=== PATIENT | female | born 1960 | race Caucasian/White ===

== ENCOUNTER 2025-07-08 14:14 | Outpatient (AMB) | payer MEDICARE, MEDICAID, SELFPAY ==
--- NOTE | 2025-07-08 14:20 | HO.NEPHOV ---
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 She has COPD and has history of respiratory failure. She follows with Dr. Greogry. She is not on any diuretics. She consumes excess free water by mouth. She has history of anxiety and is on Celexa. She also had breast cancer and had been on letrozole which she has discontinued. Her blood pressure medications have been adjusted lately. She denies any carotid stenosis, peripheral arterial disease, CVA, CHF or CAD. She consumes excess sodium in the diet. She has no family history of any renal disease, renal replacement or renal transplantation. She denies nausea, vomiting, diarrhea, chest pain, orthostatic symptoms, epistaxis, hemoptysis, hematuria, hearing deficits or proteinuria. She has no history of renal calculi or paraproteinemia. [facility] Medical History (Updated 07/08/25 @ 15:17 by Antonio Sadler MD) Breast cancer Shortness of breath Inadequate dietary energy intake Hypotension, unspecified Hyponatremia Hypertensive chronic kidney disease with stage 1 through stage 4 chronic kidney disease, or unspecified chronic kidney disease Chronic obstructive pulmonary disease with (acute) exacerbation Chronic kidney disease, stage 3b Anxiety disorder, unspecified Acute hypoxic respiratory failure Surgical History (Updated 07/08/25 @ 14:26 by Tuyet Morel MA) Hx of abdominal surgery Hx of appendectomy H/O breast surgery Social History (Updated 07/08/25 @ 14:24 by Tuyet Morel MA) Alcohol intake: current Patient Tobacco Use Status: Former Tobacco user Review of Systems Const All systems reviewed & are unremarkable except as noted in HPI and below Physical Exam Vital Signs: Last Vital Signs Pulse 108 H 07/08/25 14:26 BP 90/60 07/08/25 14:26 Pulse Ox 94 07/08/25 14:26 Oxygen Delivery Method Room Air 07/08/25 14:26 BMI result Body Mass Index 26.5 Const General: comfortable and no acute distress Orientation/consciousness: patient oriented x3 HEENT Head: Yes normocephalic Mouth: Normal oral and palatal mucosa present Eyes EOM: EOMs intact bilaterally Neck Neck: Yes supple Resp Auscultation: clear to auscultation bilaterally Cardio Jugular venous distension: no JVD Rate: regular rate GI Palpation (GI): Soft to palpation Auscultation: normal bowel sounds General: Yes no CVA tenderness Back/Spine/Pelvis Back: no CVA tenderness Skin General skin exam: no rashes or lesions noted Neuro General: patient oriented x3 and moves all extremities Extrem General: Yes no pedal edema Assessment & Plan Assessment & Plan (1) CKD stage 3a, GFR 45-59 ml/min: Code(s): N18.31 - Chronic kidney disease, stage 3a Category: Medical (2) Hyponatremia: Code(s): E87.1 - Hypo-osmolality and hyponatremia Category: Medical (3) Hypertension: Code(s): I10 - Essential (primary) hypertension Category: Medical Qualifiers: Hypertension type: primary hypertension Qualified Code(s): I10 - Essential (primary) hypertension Plan Yamilex most likely has excess ADH due to pulmonary issues. It is compounded by her intake of Celexa for anxiety disorder. She also takes excess free water by mouth. I asked her to goal on fluid restriction. She has longstanding hypertension and her blood pressure medications had been optimized recently. She also has CKD for some time. We need to rule out renal vascular disease. She is on ALLEN-inhibitor. I asked her to minimize sodium intake and avoid nonsteroidal anti-inflammatories. I have ordered blood work, urine studies as well as imaging. She was encouraged to bring all her home medications for review. I did not make any other medication changes other than discontinuation of her nonsteroidal anti-inflammatories. All these have been explained in detail. Answered all questions and follow-up appointment given. Orders: Orders Sodium Urine Random 3 Weeks E87.1 - Hypo-osmolality and hyponatremia, I95.9 - Hypotension, unspecified, N18.31 - Chronic kidney disease, stage 3a Thyroid Stimulating Hormone 3 Weeks E87.1 - Hypo-osmolality and hyponatremia, I95.9 - Hypotension, unspecified, N18.31 - Chronic kidney disease, stage 3a Uric Acid 3 Weeks E87.1 - Hypo-osmolality and hyponatremia, I95.9 - Hypotension, unspecified, N18.31 - Chronic kidney disease, stage 3a Osmolality, Serum 3 Weeks E87.1 - Hypo-osmolality and hyponatremia, I95.9 - Hypotension, unspecified, N18.31 - Chronic kidney disease, stage 3a Osmolality Urine 3 Weeks E87.1 - Hypo-osmolality and hyponatremia, I95.9 - Hypotension, unspecified, N18.31 - Chronic kidney disease, stage 3a Immunofixation Pnl, Serum 3 Weeks E87.1 - Hypo-osmolality and hyponatremia, I95.9 - Hypotension, unspecified, N18.31 - Chronic kidney disease, stage 3a US renal doppler 3 Weeks I95.9 - Hypotension, unspecified, N18.31 - Chronic kidney disease, stage 3a Cortisol Random 3 Weeks E87.1 - Hypo-osmolality and hyponatremia, I95.9 - Hypotension, unspecified, N18.31 - Chronic kidney disease, stage 3a Parathyroid Hormone Intact 3 Weeks E87.1 - Hypo-osmolality and hyponatremia, I95.9 - Hypotension, unspecified, N18.31 - Chronic kidney disease, stage 3a Vitamin D 25-OH Total 3 Weeks E87.1 - Hypo-osmolality and hyponatremia, I95.9 - Hypotension, unspecified, N18.31 - Chronic kidney disease, stage 3a Protein Creatinine Ratio, Ur 3 Weeks E87.1 - Hypo-osmolality and hyponatremia, I95.9 - Hypotension, unspecified, N18.31 - Chronic kidney disease, stage 3a Electrolytes 3 Weeks E87.1 - Hypo-osmolality and hyponatremia, I95.9 - Hypotension, unspecified, N18.31 - Chronic kidney disease, stage 3a Calcium 3 Weeks E87.1 - Hypo-osmolality and hyponatremia, I95.9 - Hypotension, unspecified, N18.31 - Chronic kidney disease, stage 3a Blood Urea Nitrogen 3 Weeks E87.1 - Hypo-osmolality and hyponatremia, I95.9 - Hypotension, unspecified, N18.31 - Chronic kidney disease, stage 3a Creatinine 3 Weeks E87.1 - Hypo-osmolality and hyponatremia, I95.9 - Hypotension, unspecified, N18.31 - Chronic kidney disease, stage 3a US renal BI 3 Weeks I95.9 - Hypotension, unspecified, N18.31 - Chronic kidney disease, stage 3a Coding Level of Care Code New Pt Level 4 (42658) Diagnoses CKD stage 3a, GFR 45-59 ml/min N18.31 Hyponatremia E87.1 Primary hypertension I10 Hypertension type: primary hypertension
[2025-07-08 14:26] VITALS: BP 90/60; PULSE 108; O2SAT 94; BMI 26.5
--- OUTSIDE RECORDS SUMMARY | 2025-07-08 15:29 | XMS_ITS ---
Author Name [facility] Organization Unknown Care Team Organization Name Specialty Phone Email Start Date End Da te [facility] ACO 06/25/2025 [facility] MIRI TYLER Primary Care 07/13/2023 06/24/2024 [facility] MILY HESS Primary Care 09/13/2022
--- OUTSIDE RECORDS SUMMARY | 2025-07-08 15:29 | XMS_ITS | Clinical Summary ---
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 Active letrozole (FEMARA) 2.5 mg tablet Take 1 tablet (2.5 mg total) by mouth 1 (one) time each day 30 tablet 3 09/30/20 24 Active betamethasone dipropionate (DIPROSONE) 0.05 % cream Apply twice a day on the rash for 10 days 45 g 2 10/08/20 24 Active amLODIPine (NORVASC) 5 mg tablet Take 1 tablet (5 mg total) by mouth 1 (one) time each day. 90 each 3 10/08/20 24 Active fluticasone-ume clidinium-vilan terol (Trelegy Ellipta) 100-62.5-25 mcg inhaler Inhale 1 puff (100 mcg total) by mouth 1 (one) time each day. Rinse mouth with water after use to reduce aftertaste and incidence of candidiasis. Do not swallow. 1 each 12 10/17/20 24 025 Active albuterol HFA (PROAIR HFA ; PROVENTIL HFA ; VENTOLIN HFA) 90 mcg/actuation inhaler Inhale 2 puffs by mouth every 6 (six) hours if needed for wheezing. 6.7 g 3 12/10/19 25 Active meclizine (ANTIVERT) 25 mg tablet Take 1 tablet (25 mg total) by mouth 3 (three) times a day if needed for dizziness. 30 tablet 3 12/10/19 25 Active melatonin 3 mg tablet Take 1 tablet (3 mg total) by mouth at bedtime. 90 tablet 01/07/20 25 Active pravastatin (PRAVACHOL) 20 mg tablet TAKE ONE TABLET BY MOUTH EVERY DAY 90 tablet 1 03/13/20 25 Active citalopram (CeleXA) 10 mg tablet TAKE ONE TABLET BY MOUTH EVERY DAY IN THE MORNING 90 tablet 1 03/13/20 25 Active fluticasone propionate (FLONASE) 50 mcg/actuation nasal spray Administer 2 sprays into each nostril 1 (one) time each day. 16 g 3 03/18/20 25 Active predniSONE (DELTASONE) 20 mg tablet 1 p.o. twice daily for 5 days and then 1 p.o. daily for 7 days 17 each 04/01/20 25 Active tiZANidine (ZANAFLEX) 4 mg tablet Take 1 tablet (4 mg total) by mouth 1 (one) time each day if needed for muscle spasms. 30 tablet 1 04/01/20 25 Active omeprazole (PriLOSEC) [address] capsule TAKE ONE CAPSULE BY MOUTH EVERY DAY DO NOT CRUSH OR CHEW 90 capsule 1 04/03/20 25 Active lisinopriL (PRINIVIL,ZESTR IL) 10 mg tablet TAKE ONE TABLET BY MOUTH EVERY DAY 90 tablet 1 04/03/20 25 Active budesonide-glyc opyr-formoterol (Breztri Aerosphere) 160-9-4.8 mcg/actuation HFA aerosol inhaler inhaler Inhale 2 puffs by mouth 2 (two) times a day. Active Vitamins B Complex tablet TAKE ONE TABLET BY MOUTH EVERY DAY 30 tablet 1 05/27/20 25 Active metoprolol succinate (TOPROL-XL) 50 mg 24 hr tablet TAKE ONE TABLET BY MOUTH EVERY DAY 90 tablet 1 12/19/19 25 025 Discontinued labetaloL (NORMODYNE) 100 mg tablet TAKE ONE TABLET BY MOUTH TWICE A DAY 60 tablet 5 01/02/20 25 025 Discontinued(T herapy completed) Hospital, Clinic, or Other Facility Administered Medication Ordered Dose Route Frequency Start Date End Date Status pmqyjpjjomj-cgpmuxpdvkyn-lqst nterol (TRELEGY ELLIPTA) 100-62.5-25 mcg inhaler 100 mcgIndications:Chronic obstructive pulmonary disease with acute exacerbation ([facility] V24, [facility] V28) 100 mcg inhl Once 10/08/2024 Active Active Problems Problem Noted Date Diagnosed Date Chronic obstructive pulmonar y disease with acute exacerbation ([facility] V24, [facility] V28) 10/18/2024 Assessment & Plan (12/10/2024 2:50 PM EST): Stable on current inhaler trilogy Orders: CBC and differential; Future Comprehensive metabolic panel; Future Lipid panel with reflex to direct LDL; Future Thyroid stimulating hormone; Future Acute respiratory failure wi th hypoxia ([facility] V24, [facility] V28) 10/18/2024 Hypertensive chronic kidney disease with stage 1 through stage 4 chronic kidney disease, or unspecified chronic kidney disease 10/18/2024 Chronic kidney disease, stage 3b ([facility] V24, [facility] V28) 10/18/2024 Hypotension, unspecified 10/18/2024 Anxiety disorder, unspecified 10/18/2024 Shortness of breath 09/19/2024 COPD exacerbation ([facility] V24, [facility] V28) Hyponatremia 09/19/2024 Inadequate dietary energy intake 09/19/2024 Acute hypoxic respiratory fa ilure ([facility] V24, [facility] V28) 09/16/2024 Encounters Date Type Department Care Team Description 06/18/2025 Telephone Lung Screening Program - [place] [address] [facility] [address] [place] [address] Jovita Ramos MA 06/13/2025 1:13 PM EDT - 06/13/2025 11:59 PM EDT Hospital Encounter [facility] CT Scan [address] [place] [address] Personal history of nicotine dependence Discharge Disposition: Home or Self Care 06/12/2025 1:30 PM EDT - 06/12/2025 11:59 PM EDT Hospital Encounter [facility] Pulmonary [address] [place] [phone] Chronic obstructive pulmonary disease with acute exacerbation ([facility] V24, [facility] V28) Discharge Disposition: Home or Self Care 06/12/2025 Telephone Pulmonolgy - [place] [address] [phone] Abel Gregory MD 06/12/2025 Telephone Lung Screening Program - [place] 299 [facility] [address] [place] [phone] Mitzy Álvarez MA 06/10/2025 1:00 PM EDT Office Visit Internal Medicine [facility] [address] [phone] Loki Sims MD Primary hypertension (Primary Dx); Hypercholesterolemia; Hyponatremia; Hair loss 2025 Telephone Pulmonolgy - [place] [address] [phone] Abel Gregory MD 05/23/2025 8:45 AM EDT Office Visit [address] [phone] Abel Gregory MD Chronic obstructive pulmonary disease with acute exacerbation ([facility] V24, [facility] V28) (Primary Dx); Chronic obstructive pulmonary disease, unspecified COPD type ([facility] V24, [facility] V28) 04/10/2025 Telephone Internal Medicine - [place] [address] [phone] Loki Sims MD from Last 3 Months Immunizations Name Administration Dates Next Due Pfizer SARS-CoV-2 COVID-19, mRNA, LNP-S, preservative free 02/26/2021 Surgical History Surgery Date Site/Laterality Comments BREAST LUMPECTOMY PROCEDURE:BREAST LUMPECTOMY APPENDECTOMY PROCEDURE:APPENDECTOMY APPENDECTOMY PROCEDURE: NE APPENDECTOMY; COMMENT: age 10 SALPINGOOPHORECTOMY PROCEDURE: NE LAPAROSCOPY W/RMVL ADNEXAL STRUCTURES; COMMENT: ovaina cysts BREAST BIOPSY 2015 Left PROCEDURE: BX BREAST; PERC NEEDLE CORE W/IMAG GUID BREAST SURGERY 2014 Left PROCEDURE: NE UNLISTED PROCEDURE BREAST Medical History Medical History Date Comments Breast cancer ([facility] V24, [facility] V28) DX:Breast cancer (HCC) Hypertension DX:Hypertension Hyperlipidemia DX:Hyperlipidemi a Anxiety DX:Anxiety Generalized headaches DX:General ized headaches Unspecified essential hypertension DX:Unspecified essential hypertension Historical Medical DX 04/23/2008 DX:HTN Smoker 04/27/2010 DX:Smoker Pure hypercholesterolemia 09/19/2011 DX:Pur e hypercholesterolemia Macrocytosis 12/11/2017 DX:Macrocytosis Chronic fatigue 12/11/2017 DX:Chronic fatig ue Chronic left-sided low back pain with left-sided sciatica 08/21/2018 DX:Chronic left-sided low ba ck pain with left-sided sciatica Unintentional weight loss 08/21/2018 DX:Uni ntentional weight loss Breast cancer ([facility] V24, [facility] V28) 11/17/2014 DX:Breast cancer ([facility]); COMM ENT: left Family History Medical History Relation Name Comments Stroke Aunt mothers side Aneurysm Brother 1 brain Other: Other Brother 2 from brain anuerysm at age 53 Heart attack Father from 1st M I age 60 Heart attack Father's Brother Heart attack Uncle Breast cancer Neg Hx Relation Name Status Comments Aunt Brother 1 Brother 2 Father Father's Brother Uncle Social History Tobacco Use Types Packs/Day Years Used Date Smoking Tobacco: Former Cigarettes Q uit: 05/28/2024 Smokeless Tobacco: Never Alcohol Use Standard Drinks/Week Comments Yes 0 (1 standard drink = 0.6 oz pur e alcohol) Interpersonal Safety Answer Date Record ed Physical Abuse 09/17/2024 Verbal Abuse 09/17/2024 Comments Unknown Sex and Gender Information Value Date Recorded Sex Assigned at Female 06/10/2025 10:04 PM EDT Legal Sex Female 12:32 PM EST Gender Identity Not on file Sexual Orientation Not on file Obstetrics History Last Filed Vital Signs Vital Sign Reading Time Taken Comments Blood Pressure 100/60 06/10/2025 1:13 PM EDT Pulse 67 06/10/2025 1:13 PM EDT Temperature 36 C (96.8 F) 06/10/2025 1:13 PM EDT Respiratory Rate 20 05/23/2025 9:02 AM EDT Oxygen Saturation 96% 06/10/2025 1:13 PM EDT Inhaled Oxygen Concentration - - Weight 68.6 kg (151 lb 3.2 oz) 06/10/2025 1:13 P M EDT Height 165.1 cm (5' 5 ) 06/10/2025 1:13 PM EDT Body Mass Index 25.16 06/10/2025 1:13 PM EDT Plan of Treatment Upcoming Encounters Date Type Department Care Team (Late st Contact Info) Description 09/16/2025 11:00 AM EST Office Visit Pulmonolgy - [place] [address] [phone] Abel Gregory MD [address] [place] [phone] 09/23/2025 2:[address] [facility] CT Scan [address] [place] [phone] 10/23/2025 1:15 PM EST Office Visit Internal Medicine - [place] [address] [phone] Loki Sims MD [address] [place] [phone] 12/31/2025 11:45 AM EST Office Visit [facility] Hematology Oncology [address] [place] [phone] Estella Samuels MD [address] [place] [address] Health Maintenance Due Date Last Done Comments Pneumococcal Vaccine: 50+ Years (1 of 2 - PCV) 1977 Zoster Vaccines (1 of 2) 1977 DTaP,Tdap,and Td Vaccines (2 - Td or Tdap) 03/28/2017 03/28/2007 RSV Immunization Adult Patients (1 - Risk 60-74 years 1-dose series) 2018 COVID-19 Vaccine (3 - Pfizer risk series) 04/16/2021 03/19/2021, 02/26/2021 Colorectal Cancer Screening: Stool Based Tests (FOBT/FIT) 10/12/2022 Hepatitis C Screening 10/12/2022 Social Influencers of Health Screening 10/12/2022 Influenza Vaccine (#1) 2025 Falls Risk Assessment 12/10/2025 12/10/2024, 024 Medicare Annual Wellness Visit 12/10/2025 12/10/2024 Breast Cancer Screening 03/18/2026 03/18/20 24, 03/18/2024, 03/07/2023, Additional history exists Hypertension/CHF/CAD Annual BMP Blood Test 05/23/2026 05/23/2025, 09/18/2024, 09/17/2024, Additional history exists Cholesterol Screening (Lipid Panel) 05/23/2030 05/23/2025 Osteoporosis Screening (Bone Density Screening) 05/28/2034 05/28/2024, 01/26/2022, 05/06/2021, Additional history exists Depression Screening Completed 12/10/2024 HIB Vaccines Aged Out No longer eligi ble based on patient's age to complete this topic HPV Vaccines Aged Out No longer eligi ble based on patient's age to complete this topic Hepatitis A Vaccines Aged Out No long er eligible based on patient's age to complete this topic Hepatitis B Vaccines Aged Out No long er eligible based on patient's age to complete this topic IPV Vaccines Aged Out No longer eligi ble based on patient's age to complete this topic MMR Vaccines Aged Out No longer eligi ble based on patient's age to complete this topic Meningococcal ACWY Vaccine Aged Out N o longer eligible based on patient's age to complete this topic Meningococcal B Vaccine Aged Out No l onger eligible based on patient's age to complete this topic RSV Immunization Patients Under 20 months Aged Out No longer eligible based on patient's age to complete this topic Varicella Vaccines Aged Out No longer eligible based on patient's age to complete this topic Procedures Procedure Name Priority Date/Time Associated Diagnosis Comments CT LUNG SCREENING Routine 06/13/2025 1:2 3 PM EDT Personal history of nicotine dependence HC STRESS TEST PULMONARY Routine 06/12/2025 2:02 PM EDT Chronic obstructive pulmonary disease with acute exacerbation (CMS/HCC V24, CMS/HCC V28) CBC WITH AUTO DIFFERENTIAL Routine 05/23/2025 9:42 AM EDT Chronic obstructive pulmonary disease with acute exacerbation (CMS/HCC V24, CMS/HCC V28) Primary hypertension Hypercholesterolemia CBC AND DIFFERENTIAL Routine 05/23/2025 9:42 AM EDT Chronic obstructive pulmonary disease with acute exacerbation (CMS/HCC V24, CMS/HCC V28) Primary hypertension Hypercholesterolemia COMPREHENSIVE METABOLIC PANEL Routine 05/23/2025 9:42 AM EDT Chronic obstructive pulmonary disease with acute exacerbation (CMS/HCC V24, CMS/HCC V28) Primary hypertension Hypercholesterolemia LIPID PANEL WITH REFLEX TO DIRECT LDL Routine 05/23/2025 9:42 AM EDT Chronic obstructive pulmonary disease with acute exacerbation (CMS/HCC V24, CMS/HCC V28) Primary hypertension Hypercholesterolemia THYROID STIMULATING HORMONE Routine 05/23/2025 9:42 AM EDT Chronic obstructive pulmonary disease with acute exacerbation (CMS/HCC V24, CMS/HCC V28) Primary hypertension Hypercholesterolemia HERNANDO DEXA AXIAL SKELETON Routine 05/28/2024 7:45 AM EDT Other specified disorders of bone density and structure, left thigh SCREENING MAMMOGRAPHY BI 2-VIEW BREAST INC CAD Routine 03/18/2024 11:41 AM EDT Personal history of malignant neoplasm of breast Encounter for screening mammogram for malignant neoplasm of breast from Last 3 Months or Most Recently Relevant to Health Maintenance Results * CT Lung Screening (06/13/2025 1:23 PM EDT) Anatomical Region Laterality Modality Chest Computed Tomogra phy 06/18/2025 8:18 AM EDT Impressions 06/18/2025 8:38 AM EDT Interval worsening aeration. Severe underlying emphysema. There is a new irregular opacity in the right apex which is difficult to quantify but is approximately 0.8 cm. Recommend repeat low-dose CT in 3 months Multiple additional scattered micronodules or areas of airway thickening have developed. Interval development of compression deformity T12. LUNG RADS: Lung-RADS 4A: SUSPICIOUS S Modifier (Significant or Potentially Significant Findings): None present No suspicious nonpulmonary findings. RECOMMENDATIONS: [address]; PET/CT may be considered if there is a greater than or equal to 8 mm solid nodule or solid component -------- FINAL REPORT -------- Dictated By: Ben Santos Dictated Date: 06/18/2025 08:18 ET Assigned Physician: Ben Santos Reviewed and Electronically Signed By: Ben Santos Signed Date: 06/18/2025 08:38 ET Workstation ID: [id number] Transcribed By: Self Edit Transcribed Date: 06/18/2025 08:18 ET Narrative 06/18/2025 8:38 AM EDT EXAMINATION: CT CHEST WITHOUT CONTRAST LUNG CANCER SCREENING, LOW DOSE CLINICAL INFORMATION: Lung cancer screening. Current smoker. COMPARISON: Portions of previous 08/29/23 TECHNIQUE: Multidetector CT. Examination of the chest. Examination of the chest without IV contrast. Reformatting in the coronal and sagittal planes. Device: Ovelin VCT DLP: 106 mGy-cm CTDI: 3.22 Dose optimization was performed including the use of low-dose iterative reconstruction technique with automatic exposure control based on patient size. Type of contrast: None Volume of IV contrast: None Volume of contrast discarded: 0 mL FINDINGS: LUNG: No suspicious abnormality of the trachea or mainstem bronchi. There are minor secretions in the trachea. LUNG NODULES: There is an apparently new irregular opacity in the right apex which is difficult to quantify and has some reticular margins. 06/13/25-0.8 cm (02/03) There is a new micronodule in the periphery of the anterior left upper lobe (63) measuring approximately 0.3 cm. There are multiple scattered micronodules predominantly in the periphery and lower lung zones. There is some airway thickening. These all measure less than 0.4 cm. OTHER PULMONARY: Severe centrilobular emphysema. There are coarse reticular opacities greatest in the periphery and in the lower lung zones. There is no honeycomb formation. The reticular opacities have increased. MEDIASTINUM: There are some calcified lymph nodes. There is a small to moderate hiatal hernia. CARDIAC: There is a small amount of pericardial fluid without chamber deformity. There are moderate coronary calcifications. VASCULAR: There is no thoracic aortic aneurysm. The main pulmonary artery is normal caliber PLEURA: There is no pleural fluid or pneumothorax AXILLA/CHEST WALL: There are no enlarged axillary lymph nodes. No chest wall mass demonstrated. VISUALIZED UPPER ABDOMEN: No suspicious abnormality on limited assessment of the visualized upper abdomen. MUSCULOSKELETAL: No suspicious focal bony lesion demonstrated. Interval development of mild to moderate superior compression deformity of T12 greatest anteriorly with some vacuum phenomena at T11/T12 disc. Some mild bony projection into the spinal canal. us Ovi Carlos MD IMG CT PROCEDURES Final Result * Pulmonary function testing: Pulmonary Stress Test, 6 min walk (06/12/2025 2:02 PM EDT) Narrative Kendra Walden MD - 06/12/2025 5:18 PM EDT Table formatting from the original result was not included. Images from the original result were not included. [facility] [address] [place] [id number] Pulmonary Functions Report Date of service: 06/12/25 Patient Name: Michelle Strong Date of : 1960 Age: 65 y.o. Gender: female Ordering Provider: Abel Gregory MD Diagnosis listed on Order: Chronic obstructive pulmonary disease with acute exacerbation ([facility] V24, [facility] V28) Reason for Exam: Order Questions Answers Reason for Exam: copd Which PFTs would you like to perform? Pulmonary Stress Test, 6 min walk Six Minute Walk Test Data: Patient Baseline Information: Supplemental O2 at Home No O2 (LPM / Device) at Home Walking Aid Used None Symptoms reported by patient None Pre Test Data: Pre Test Dyspnea (Debora Scale 0-10) 0 Pre Test Fatigue (Debora Scale 0-10) 0 Resting: Vitals HR: 82 RR: 16 SpO2: 94 % BP: 122/64 O2 Device and LPM (if applicable) 1 minute: Vitals HR: 88 RR: 18 SpO2: 94 % O2 Device and LPM (if applicable) 2 minutes: Vitals HR: 104 RR: 20 SpO2: 92 % O2 Device and LPM (if applicable) 3 minutes: Vitals HR: 110 RR: 22 SpO2: 92 % O2 Device and LPM (if applicable) 4 minutes: Vitals HR: 114 RR: 24 SpO2: 90 % O2 Device and LPM (if applicable) 5 minutes: Vitals HR: 112 RR: 26 SpO2: 89 % O2 Device and LPM (if applicable) 6 minutes: Vitals HR: 108 RR: 24 SpO2: 90 % O2 Device and LPM (if applicable) Recovery: Vitals HR: 88 RR: 18 SpO2: 93 % BP: 115/66 O2 Device and LPM (if applicable) Post Test: Pauses needed during testing? Yes If Yes, reason for pauses SOB Total Distance completed (feet) 506 feet (154.299) Symptoms reported by patient Post Test Dyspnea (Debora Scale 0-10) 1 Post Test Fatigue (Debora Scale 0-10) 1 Was Test terminated before 6 minutes? No Reason for Early Termination Abel Gregory MD PFT ORDERABLES Final Result * (ABNORMAL) Lipid panel with reflex to direct LDL (05/23/2025 9:42 AM EDT) Cholesterol 176 0 - 200 mg/dL LAB CHEMISTRY METHOD 05/23/2025 3:46 PM EDT [facility] Triglycerides 98 0 - 150 mg/dL LAB CHEMISTRY METHOD 05/23/2025 3:46 PM EDT [facility] HDL 52 >=40 mg/dL LAB CHEMISTRY METHOD 05/23/2025 3:46 PM EDT [facility] LDL Calculated 104(H) 0 - 100 mg/dL LAB CHEMISTRY METHOD 05/23/2025 3:46 PM EDT [facility] VLDL Cholesterol [place] 19.6 mg/dL LAB [facility]STR[facility]/23[facility]25 [facility] Non HDL Chol. (LDL+VLDL) 124 <145 mg/dL LAB CHEMISTRY METHOD 05/23/2025 3:46 PM EDT [facility] Chol/HDL Ratio 3.4 0.0 - 4.4 LAB CHEMISTRY METHOD 05/23/2025 3:46 PM EDT [facility] Blood Venous blood specimen / Unknown Venipuncture / Unknown 05/23/2025 9:42 AM EDT 05/23/2025 9:42 AM EDT us Loki Sims MD LAB BLOOD ORDERABLES Final Resul t [facility] [address] [place] [address], * (ABNORMAL) CBC auto differential (05/23/2025 9:42 AM EDT) WBC 9.2 4.8 - 10.8 K/mcL LAB HEMETOLOGY METHOD 05/23/2025 10:32 AM EDT [facility] RBC 3.90 3.80 - 4.80 M/mcL LAB HEMETOLOGY METHOD 05/23/2025 10:32 AM EDT [facility] Hemoglobin 12.2 11.5 - 16.0 g/dL LAB HEMETOLOGY METHOD 05/23/2025 10:32 AM EDT [facility] Hematocrit 36.2 35.0 - 47.0 % LAB HEMETOLOGY METHOD 05/23/2025 10:32 AM T [facility] MCV 92.8 79.0 - 98.0 FL LAB HEMETOLOGY METHOD 05/23/2025 10:32 AM EDT [facility] MCH 31.3 27.0 - 32.0 pcg LAB HEMETOLOGY METHOD 05/23/2025 10:32 AM T [facility] MCHC 33.7 32.0 - 37.0 g/dL LAB HEMETOLOGY METHOD 05/23/2025 10:32 AM [facility] RDW 12.1 11.0 - 15.0 % LAB HEMETOLOGY METHOD 05/23[facility]2025 10:[facility] Platelets 394 130 - 400 K/mcL LAB HEMETOLOGY METHOD 05/23/2025 10:32 AM [facility] MPV 8.7 7.0 - 11.0 FL LAB HEMETOLOGY METHOD 05/23/2025 10:32 AM [facility] NRBC 0.0 <1.0 % LAB HEMETOLOGY METHOD 05/23/2025 10:32 AM [facility] NRBC Absolute 0.00 <0.10 K/mcL LAB HEMETOLOGY METHOD 05/23/2025 10:32 AM [facility] Neutrophils Relative 63.3 % LAB HEMETOLOGY METHOD 05/23/2025 10:32 AM [facility] Lymphocytes Relative 10.0 % LAB HEMETOLOGY METHOD 05/23/2025 10:32 AM [facility] Monocytes Relative 16.0 % LAB HEMETOLOGY METHOD 05/23/2025 10:32 AM [facility] Eosinophils Relative 9.4 % LAB HEMETOLOGY METHOD 05/23/2025 10:32 AM [facility] Basophils Relative 0.9 % LAB HEMETOLOGY METHOD 05/23/2025 10:32 AM [facility] Immature Granulocytes Relative 0.4 % LAB HEMETOLOGY METHOD 05/23/2025 10:32 AM [facility] Neutrophils Absolute 5.82 1.50 - 7.00 K/mcL LAB HEMETOLOGY METHOD 05/23/2025 10:32 AM [facility] Lymphocytes Absolute 0.92(L) 1.00 - 5.00 K/mcL LAB HEMETOLOGY METHOD 05/23/2025 10:32 AM [facility] Monocytes Absolute 1.47(H) 0.20 - 1.00 K/mcL LAB HEMETOLOGY METHOD 05/23/2025 10:32 AM EDT [facility] Eosinophils Absolute 0.86(H) 0.00 - 0.50 K/[facility] LAB HEMETOLOGY METHOD 05/23/2025 10:32 AM EDT [facility] Basophils Absolute 0.08 0.00 - 0.20 K/[facility] LAB HEMETOLOGY METHOD 05/23/2025 10:32 AM EDT [facility] Immature Granulocytes Absolute 0.04(H) 0.00 - 0.03 K/[facility] LAB HEMETOLOGY METHOD 05/23/2025 10:32 AM EDT [facility] Blood Venous blood specimen / Unknown Venipuncture / Unknown 05/23/2025 9:42 AM EDT 05/23/2025 9:42 AM EDT us Loki Sims MD LAB BLOOD ORDERABLES Final Resul t Performing Organization Address City/[facility]/ZIP Co de Phone Number [facility] [address] [place] [address], [place] [phone] * Thyroid stimulating hormone (05/23/2025 9:42 AM EDT) [facility] TSH 1.15 0.40 - 4.00 mcIU/mL LAB CHEMISTRY METHOD 05/23/2025 5:45 PM EDT [facility] Blood Venous blood specimen / Unknown Venipuncture / Unknown 05/23/2025 9:42 AM EDT 05/23/2025 9:42 AM EDT us Loki Sims MD LAB BLOOD ORDERABLES Final Resul t Performing Organization Address City/[facility]/ZIP Co de Phone Number [facility] [address] [place] [address], [place] [phone] * (ABNORMAL) Comprehensive metabolic panel (05/23/2025 9:42 AM EDT) Pathologist [facility] Sodium 131(L) 133 - 145 mmol/L LAB CHEMISTRY METHOD 05/23/2025 3:46 PM [facility] Potassium 3.9 3.5 - 5.5 mmol/L LAB CHEMISTRY METHOD 05/23/2025 3:46 PM [facility] Chloride 99 96 - 110 mmol/L LAB CHEMISTRY METHOD 05/23/2025 3:46 PM [facility] CO2 23 21 - 32 mmol/L LAB CHEMISTRY METHOD 05/23/2025 3:46 PM [facility] Anion Gap 9 3 - 11 LAB CHEMISTRY METHOD 05/23/2025 3:46 PM [facility] Glucose 110(H) 70 - 100 mg/dL LAB CHEMISTRY METHOD 05/23/2025 3:46 PM [facility] BUN 16 5 - 25 mg/dL LAB CHEMISTRY METHOD 05/23/2025 3:46 PM [facility] Creatinine 1.19(H) 0.50 - 1.10 mg/dL LAB CHEMISTRY METHOD 05/23/2025 3:46 PM [facility] eGFR 51(L) >=60 mL/min/1. 73m2 LAB CHEMISTRY METHOD 05/23/2025 3:46 PM [facility] Comment:Calculation based on the Chronic Kidney Disease Epidemiology Collaboration (CKD-EPI) equation refit without adjustment for race. BUN/Creatinine Ratio 13.4 LAB CHEMISTRY METHOD 05/23/2025 3:46 PM [facility] Calcium 9.1 8.5 - 10.5 mg/dL LAB CHEMISTRY METHOD 05/23/2025 3:46 PM [facility] AST (SGOT) 13 10 - 42 unit/L LAB CHEMISTRY METHOD 05/23/2025 3:46 PM [facility] ALT (SGPT) 14 10 - 60 unit/L LAB CHEMISTRY METHOD 05/23/2025 3:46 PM [facility] Alkaline Phosphatase 104 42 - 121 unit/L LAB CHEMISTRY METHOD 05/23/2025 3:46 PM EDT [facility] Total Protein 6.6 6.0 - 8.0 g/dL LAB CHEMISTRY METHOD 05/23/2025 3:46 PM EDT [facility] Albumin 3.2 3.2 - 5.0 g/dL LAB CHEMISTRY METHOD 05/23/2025 3:46 PM EDT [facility] Total Bilirubin 0.5 0.0 - 1.4 mg/dL LAB CHEMISTRY METHOD 05/23/2025 3:46 PM EDT [facility] Blood Venous blood specimen / Unknown Venipuncture / Unknown 05/23/2025 9:42 AM EDT 05/23/2025 9:42 AM EDT us Loki Sims MD LAB BLOOD ORDERABLES Final Resul t [facility] [address] [place] [address], * HERNANDO DEXA AXIAL SKELETON (05/28/2024 7:45 AM EDT) Anatomical Region Laterality Modality Mammography 05/27/2024 1:12 PM EDT Narrative 05/28/2024 7:45 AM EDT [facility] Diagnostic Imaging Department [address] [place] [address] Patient: MICHELLE STRONG/Age/Sex: 1960 - 64 - F Unit#: [id number] Location/Status: SPDIMAM/REG CLI Mnemonic/Ordering Site: MAMDEXAAX/SPMAM Ordering Physician: ESTELLA SAMUELS MD Hernando Dexa Axial Skeleton - 05/27/24 - Report Status:Signed HISTORY: The patient is a 64-year-old postmenopausal female with clinical concern for metabolic bone disease. FINDINGS: Dual energy x-ray absorptiometry of the lumbar spine and femurs is performed. The mean bone mineral density at L1-L4 is 1.065 gm/cm2 which is 90% of that of young normals and 105% of that of age matched controls. This yields a T-score of -1.0 and a Z-score of 0.4 and there is therefore no evidence of osteoporosis or osteopenia here. The mean bone mineral density of the femurs bilaterally is 0.821 gm/cm2 which is 81% of that of young normals and 94% of that of age matched controls. This yields a T-score of -1.5 and a Z-score of -0.4 which is diagnostic of osteopenia. IMPRESSION: 1. Osteopenia. There has been increase of 7.0% in bone mineral density in the lumbar spine since the prior examination of 01/26/2022. There has been an increase of 3.9% in bone mineral density in the right femur and a decrease of 0.6% in bone mineral density in the left femur. 2. FRAX analysis yields a 10-year probability of major osteoporotic fracture of 23.4% and a 10-year probability of hip fracture of 7.6%. Code 69317 Dictating Physician: LUIS ANTONIO TRIPLETT MD Electronically Signed by: LUIS ANTONIO TRIPLETT MD Dic Date/Time: 05/28/24 0743 Sign date/Time: 05/28/2445 Procedure Note Luis Antonio Triplett MD - 08/21/2024 [facility] Diagnostic Imaging Department [address] [place] [address] Patient: MICHELLE STRONG /Age/Sex: 1960 - 64 - F Unit#: [id number] Location/Status: SPDIMAM/REG CLI Mnemonic/Ordering Site: MAMDEXAAX/SPMAM Ordering Physician: ESTELLA SAMUELS MD Hernando Dexa Axial Skeleton - 05/27/24 - Report Status:Signed HISTORY: The patient is a 64-year-old postmenopausal female withclinical concern for metabolic bone disease. FINDINGS: Dual energy x-ray absorptiometry of the lumbar spine and femursis performed. The mean bone mineral density at L1-L4 is 1.065 gm/cm2 which is90% of that of young normals and 105% of that of age matched controls. Thisyields a T-score of -1.0 and a Z-score of 0.4 and there is therefore no evidenceof osteoporosis or osteopenia here. The mean bone mineral density of the femurs bilaterally is 0.821 gm/sm5skmck is 81% of that of young normals and 94% of that of age matched controls.This yields a T-score of -1.5 and a Z-score of -0.4 which is diagnostic of osteopenia. IMPRESSION: 1. Osteopenia. There has been increase of 7.0% in bone mineral density inthe lumbar spine since the prior examination of 01/26/2022. There has beenan increase of 3.9% in bone mineral density in the right femur and a decreaseof 0.6% in bone mineral density in the left femur. 2. FRAX analysis yields a 10-year probability of major osteoporoticfracture of 23.4% and a 10-year probability of hip fracture of 7.6%. Code 92722 Dictating Physician: LUIS ANTONIO TRIPLETT MD Electronically Signed by: LUIS ANTONIO TRIPLETT MD Dic Date/Time: 05/28/24 0743 Sign date/Time: 05/28/24 0745 Estella TORRES BI PROCEDURES Final Resu lt * SCREENING MAMMOGRAPHY BI 2-VIEW BREAST INC CAD (03/18/2024 11:41 AM EDT) Anatomical Region Laterality Modality Radiographic Ciarra ging 03/07/2023 10:2 7 AM EDT Narrative 03/18/2024 1:20 PM EDT This is a summary report. The complete report is available in the patient's medical record. If you cannot access the medical record, please contact the sending organization for a detailed fax or copy. Full field digital screening tomosynthesis mammography, reviewed with CAD and compared to previous. The breast tissue is heterogeneously dense, limiting sensitivity. Findings of lumpectomy on the left once again remains stable. No suspicious mass, architectural distortion or suspicious calcifications are identified. IMPRESSION: : Dense breast tissue, limiting the sensitivity of mammography. No mammographic evidence of malignancy. BIRADS 2-Benign; 1. 5 year breast cancer risk assessment N/A Lifetime breast cancer risk assessment N/A Breast cancer risk category Low (<15%) Procedure Note Michelet Beltrán MD - 06/24/2024 This is a summary report. The complete report is available in thepatient's medical record. If you cannot access the medical record, pleasecontact the sending organization for a detailed fax or copy. Full field digital screening tomosynthesis mammography, reviewed with CADand compared to previous. The breast tissue is heterogeneously dense,limiting sensitivity. Findings of lumpectomy on the left once againremains stable. No suspicious mass, architectural distortion orsuspicious calcifications are identified. IMPRESSION: : Dense breast tissue, limiting the sensitivity of mammography. Nomammographic evidence of malignancy. BIRADS 2-Benign; 1. 5 year breast cancer risk assessment N/A Lifetime breast cancer risk assessment N/A Breast cancer risk category Low (<15%) Estella U Arvind MD IMG XR PROCEDURES Final Resu lt from Last 3 Months or Most Recently Relevant to Health Maintenance Insurance MEDICARE [place]ICAID - [place] Advance Directives Documents on File Type Date Recorded Patient Epic [facility] Expl anation Health Care Decision (hx) 06/23/2024 HE ALTH CARE PROXY Health Care Decision (hx) 06/23/2024 HE ALTH CARE PROXY Health Care Decision (hx) 06/23/2024 HE ALTH CARE PROXY Health Care Decision (hx) 12/19/2014 AD SANCHES DIRECTIVE Health Care Decision (hx) 12/19/2014 AD SANCHES DIRECTIVE Health Care Decision (hx) 12/19/2014 AD SANCHES DIRECTIVE Health Care Decision (hx) 12/19/2014 AD SANCHES DIRECTIVE Health Care Decision (hx) 12/19/2014 AD SANCHES DIRECTIVE Health Care Decision (hx) 12/19/2014 AD SANCHES DIRECTIVE Health Care Decision (hx) 12/19/2014 AD SANCHES DIRECTIVE Health Care Decision (hx) 12/19/2014 AD SANCHES DIRECTIVE Health Care Decision (hx) 12/19/2014 AD SANCHES DIRECTIVE Health Care Decision (hx) 12/19/2014 AD SANCHES DIRECTIVE Health Care Decision (hx) 12/19/2014 AD SANCHES DIRECTIVE Health Care Decision (hx) 12/19/2014 AD SANCHES DIRECTIVE Health Care Decision (hx) 12/19/2014 AD SANCHES DIRECTIVE Health Care Decision (hx) 12/19/2014 AD SANCHES DIRECTIVE Health Care Decision (hx) 12/19/2014 AD SANCHES DIRECTIVE Health Care Decision (hx) 12/19/2014 AD SANCHES DIRECTIVE Health Care Decision (hx) 12/19/2014 AD SANCHES DIRECTIVE Health Care Decision (hx) 12/19/2014 AD SANCHES DIRECTIVE Health Care Decision (hx) 12/19/2014 AD SANCHES DIRECTIVE Health Care Decision (hx) 12/19/2014 AD SANCHES DIRECTIVE Health Care Decision (hx) 12/19/2014 AD SANCHES DIRECTIVE Health Care Decision (hx) 12/19/2014 AD SANCHES DIRECTIVE Health Care Decision (hx) 12/19/2014 AD SANCHES DIRECTIVE Health Care Decision (hx) 12/19/2014 AD SANCHES DIRECTIVE Health Care Decision (hx) 12/19/2014 AD SANCHES DIRECTIVE Health Care Decision (hx) 12/18/2014 AD SANCHES DIRECTIVE Health Care Decision (hx) 12/18/2014 AD SANCHES DIRECTIVE Health Care Decision (hx) 12/18/2014 AD SANCHES DIRECTIVE Health Care Decision (hx) 12/18/2014 AD SANCHES DIRECTIVE Health Care Decision (hx) 12/18/2014 AD SANCHES DIRECTIVE Health Care Decision (hx) 12/18/2014 AD SANCHES DIRECTIVE Health Care Decision (hx) 12/18/2014 AD SANCHES DIRECTIVE Health Care Decision (hx) 12/18/2014 AD SANCHES DIRECTIVE Health Care Decision (hx) 12/18/2014 AD SANCHES DIRECTIVE Health Care Decision (hx) 12/18/2014 AD SANCHES DIRECTIVE Health Care Decision (hx) 12/18/2014 AD SANCHES DIRECTIVE Health Care Decision (hx) 12/18/2014 AD SANCHES DIRECTIVE Health Care Decision (hx) 12/18/2014 AD SANCHES DIRECTIVE Health Care Decision (hx) 12/18/2014 AD SANCHES DIRECTIVE Health Care Decision (hx) 12/18/2014 AD SANCHES DIRECTIVE Health Care Decision (hx) 12/18/2014 AD SANCHES DIRECTIVE Health Care Decision (hx) 12/18/2014 AD SANCHES DIRECTIVE Health Care Decision (hx) 12/18/2014 AD SANCHES DIRECTIVE Health Care Decision (hx) 12/18/2014 AD SANCHES DIRECTIVE Health Care Decision (hx) 12/18/2014 AD SANCHES DIRECTIVE Health Care Decision (hx) 12/18/2014 AD SANCHES DIRECTIVE Health Care Decision (hx) 12/18/2014 AD SANCHES DIRECTIVE Health Care Decision (hx) 12/18/2014 AD SANCHES DIRECTIVE Health Care Decision (hx) 12/18/2014 AD SANCHES DIRECTIVE Health Care Decision (hx) 12/18/2014 AD SANCHES DIRECTIVE * Full Code - Default (Latest Code Status on File) Date Activated Date Inactivated Comments 09/16/2024 6:08 PM 09/19/2024 5:06 PM This is or yan is used when code status has not been discussed with the patient, or code status is otherwise unknown/unconfirmed To update the patient's code status, place a code status order. Do not modify or discontinue any currently active code status orders. Care Teams Punch Press Setter Relationship Specialty Start Date End Date Loki Sims MD [address] [place] [id number] PCP - General 10/16/23
--- OUTSIDE RECORDS SUMMARY | 2025-07-08 15:29 | XMS_ITS | Clinical Summary ---
Author Organization [facility] Address [address] [place] [address] Care Team Providers Care Nitroglycerin Nitrator Operator Batch Name Role Phone Loki Sims MD Primary Care Provider Unavailab le Allergies Active Allergy Reactions Criticality Noted Date Comments Sulfamethoxazole-Trimethoprim 2016 Bee Sting 08/14/2017 Medications Medication Sig Dispensed Refills Start Date End Date Status lisinopril (PRINIVIL,ZESTRIL) tablet 5 mg Take 4 tablets (20 mg total) by mouth daily. 0 Active pravastatin (PRAVACHOL) tablet 20 mg Take 1 tablet (20 mg total) by mouth daily. 0 Active citalopram (CELEXA) 10 MG tablet Take 1 tablet (10 mg total) by mouth daily. 0 Active traMADol (ULTRAM) 50 MG tablet Take 50 mg by mouth every 6 (six) hours as needed for pain. 0 Active metoprolol succinate (TOPROL-XL) 24 hr tablet 50 mg Take 1 tablet (50 mg total) by mouth daily. 0 Active alendronate (FOSAMAX) tablet 70 mg Take 1 tablet (70 mg total) by mouth every 7 days. Take with water on empty stomach/Nothing by mouth and do not lie down for next 30 minutes 0 Active gabapentin (NEURONTIN) 100 MG capsule Take 1 capsule (100 mg total) by mouth 3 (three) times a day. 0 Active letrozole (FEMARA) 2.5 MG tablet TAKE ONE TABLET BY MOUTH EVERY DAY 90 tablet 2 12/20/2023 Active Active Problems No known active problems Family History Medical History Relation Name Comments Aneurysm Brother brain Heart attack Father Heart attack Paternal Uncle Relation Name Status Comments Brother Father Paternal Uncle Social History Tobacco Use Types Packs/Day Years Used Date Smoking Tobacco: Former Cigarettes 0.5 Smokeless Tobacco: Never Alcohol Use Standard Drinks/Week Comments No 0 (1 standard drink = 0.6 oz pur e alcohol) Sex and Gender Information Value Date Recorded Sex Assigned at Not on file Gender Identity Not on file Sexual Orientation Not on file Job Start Date Occupation Industry Not on file Not on file Not on file Last Filed Vital Signs Vital Sign Reading Time Taken Comments Blood Pressure 160/70 06/18/2024 11:50 AM EDT Pulse 62 06/18/2024 11:50 AM EDT Temperature 36.1 C (96.9 F) 06/18/2024 11:50 AM EDT Respiratory Rate - - Oxygen Saturation 97% 06/18/2024 11:50 AM EDT Inhaled Oxygen Concentration - - Weight 74.5 kg (164 lb 3.2 oz) 06/18/2024 11:50 AM EDT Height 167.6 cm (5' 6 ) 01/19/2021 11:37 AM EDT Body Mass Index 26.5 01/19/2021 11:37 AM EDT Plan of Treatment Health Maintenance Due Date Last Done Comments Hepatitis C Screening 1960 Depression Screening 1970 Preventative Health Evaluation 1976 Colon Cancer Screening (Colonoscopy) 2003 Breast Cancer Screening (Mammogram) 2008 Shingrix-Zoster Vaccine (1 of 2) 2008 DTap / Tdap / Td (2 - Td or Tdap) 03/28/2017 007 Fall Risk Assessment 2023 Osteoporosis Screening (DEXA Scan) 2023 Pneumococcal Vaccine (1 of 1 - PCV) 2023 COVID-19 Vaccine (2 - 2023-2 5 season) 2024 02/26/2021 Influenza Vaccine (#1) 2025 RSV Adult > 60+ Yrs or Pregn ant (1 - 1-dose 75+ series) 2033 Hepatitis B Vaccines Aged Out No long er eligible based on patient's age to complete this topic RSV Ped < 20 months Aged Out No longe r eligible based on patient's age to complete this topic Care Teams Nitroglycerin Nitrator Operator Batch Relationship Specialty Start Date End Date Loki Sims MD PCP - General Internal Medicine 10/16/23
== END 2025-07-08 15:07 | disposition home or self-care (01) ==
PROVIDERS: PCP Internal Medicine; Referring Provider Internal Medicine; Visit Provider Internal Medicine Nephrology
DX: N18.31 Chronic kidney disease, stage 3a (principal); E87.1 Hypo-osmolality and hyponatremia; I10 Essential (primary) hypertension
CPT/HCPCS: 99204

== ENCOUNTER → 2025-07-08 14:14 | Outpatient (BNVA) | payer MEDICARE, SELFPAY | PROVIDERS: PCP Internal Medicine; Referring Provider Internal Medicine; Visit Provider Internal Medicine Nephrology | DX: I12.9 Hypertensive chronic kidney disease with stage 1 through stage 4 chronic kidney disease, or unspecified chronic kidney disease (principal); N18.31 Chronic kidney disease, stage 3a; E87.1 Hypo-osmolality and hyponatremia; Z87.891 Personal history of nicotine dependence | CPT/HCPCS: 99202 ==

== ENCOUNTER 2025-08-01 13:32 | Outpatient (REF) | payer MEDICARE, MEDICAID, SELFPAY ==
--- OUTSIDE RECORDS SUMMARY | 2025-08-01 14:53 | XMS_ITS | Clinical Summary ---
Author Organization 175 [facility] Address [address] [place] [address] Phone Care Team Providers Care Offbearer Name Role Phone Loki Sims MD Primary Care Provider [phone] Allergies Active Allergy Reactions Criticality Noted Date Comments Bee Venom Protein (Honey Bee) 2016 Sulfamethoxazole-Trimethoprim 2016 Medications traMADoL (ULTRAM) 50 mg tablet Take 1 tablet (50 mg total) by mouth every 6 hours as needed. Active letrozole (FEMARA) 2.5 mg tablet Take 1 tablet (2.5 mg total) by mouth 1 (one) time each day 30 tablet 3 4 Active betamethasone dipropionate (DIPROSONE) 0.05 % cream Apply twice a day on the rash for 10 days 45 g 2 4 Active amLODIPine (NORVASC) 5 mg tablet Take 1 tablet (5 mg total) by mouth 1 (one) time each day. 90 each 3 4 Active fluticasone-umec lidinium-vilante rol (Trelegy Ellipta) 100-62.5-25 mcg inhaler Inhale 1 puff (100 mcg total) by mouth 1 (one) time each day. Rinse mouth with water after use to reduce aftertaste and incidence of candidiasis. Do not swallow. 1 each 12 4 025 Active albuterol HFA (PROAIR HFA ; PROVENTIL HFA ; VENTOLIN HFA) 90 mcg/actuation inhaler Inhale 2 puffs by mouth every 6 (six) hours if needed for wheezing. 6.7 g 3 5 Active meclizine (ANTIVERT) 25 mg tablet Take 1 tablet (25 mg total) by mouth 3 (three) times a day if needed for dizziness. 30 tablet 3 5 Active melatonin 3 mg tablet Take 1 tablet (3 mg total) by mouth at bedtime. 90 tablet 5 Active pravastatin (PRAVACHOL) 20 mg tablet TAKE ONE TABLET BY MOUTH EVERY DAY 90 tablet 1 5 Active citalopram (CeleXA) 10 mg tablet TAKE ONE TABLET BY MOUTH EVERY DAY IN THE MORNING 90 tablet 1 5 Active fluticasone propionate (FLONASE) 50 mcg/actuation nasal spray Administer 2 sprays into each nostril 1 (one) time each day. 16 g 3 5 Active predniSONE (DELTASONE) 20 mg tablet 1 p.o. twice daily for 5 days and then 1 p.o. daily for 7 days 17 each 5 Active tiZANidine (ZANAFLEX) 4 mg tablet Take 1 tablet (4 mg total) by mouth 1 (one) time each day if needed for muscle spasms. 30 tablet 1 5 Active omeprazole (PriLOSEC) [address] capsule TAKE ONE CAPSULE BY MOUTH EVERY DAY DO NOT CRUSH OR CHEW 90 capsule 1 5 Active lisinopriL (PRINIVIL,ZESTRI L) 10 mg tablet TAKE ONE TABLET BY MOUTH EVERY DAY 90 tablet 1 5 Active budesonide-glyco pyr-formoterol (Breztri Aerosphere) 160-9-4.8 mcg/actuation HFA aerosol inhaler inhaler Inhale 2 puffs by mouth 2 (two) times a day. Active B complex (Vitamins B Complex) tablet Take 1 tablet by mouth 1 (one) time each day. 90 tablet 5 Active Vitamins B Complex tablet TAKE ONE TABLET BY MOUTH EVERY DAY 30 tablet 1 5 025 Discontin ued(Reord er) B complex (Vitamins B Complex) tablet Take 1 tablet by mouth 1 (one) time each day. 30 tablet 1 5 025 Discontin ued(Reord er) Hospital, Clinic, or Other Facility Administered Medication Ordered Dose Route Frequency Start Date End Date Status zvwigpnygbf-owrcmvapfjio-rzon nterol (TRELEGY ELLIPTA) 100-62.5-25 mcg inhaler 100 mcgIndications:Chronic obstructive pulmonary disease with acute exacerbation ([facility] V24, [facility] V28) 100 mcg inhl Once 10/08/2024 Active Active Problems Problem Noted Date Diagnosed Date Chronic obstructive pulmonar y disease with acute exacerbation ([facility] V24, [facility] V28) 10/18/2024 Assessment & Plan (12/10/2024 2:50 PM EST): Stable on current inhaler trilogy Orders: CBC and differential; Future Comprehensive metabolic panel; Future Lipid panel with reflex to direct LDL; Future Thyroid stimulating hormone; Future Acute respiratory failure wi th hypoxia ([facility] V24, [facility] V28) 10/18/2024 Hypertensive chronic kidney disease with stage 1 through stage 4 chronic kidney disease, or unspecified chronic kidney disease 10/18/2024 Chronic kidney disease, stage 3b ([facility] V24, [facility] V28) 10/18/2024 Hypotension, unspecified 10/18/2024 Anxiety disorder, unspecified 10/18/2024 Shortness of breath 09/19/2024 COPD exacerbation ([facility] V24, [facility] V28) Hyponatremia 09/19/2024 Inadequate dietary energy intake 09/19/2024 Acute hypoxic respiratory fa ilure ([facility] V24, [facility] V28) 09/16/2024 Encounters Date Type Department Care Team Description 06/18/2025 Telephone Lung Screening Program - [place] 299 [facility] [address] [place] [phone] Jovita Ramos [place] 06/13/2025 1:13 PM EDT - 06/13/2025 11:59 PM EDT Hospital Encounter [facility] CT Scan [address] [place] [phone] Personal history of nicotine dependence Discharge Disposition: Home or Self Care 06/12/2025 1:30 PM EDT - 06/12/2025 11:59 PM EDT Hospital Encounter [facility] Pulmonary [address] [place] [phone] Chronic obstructive pulmonary disease with acute exacerbation ([facility] V24, [facility] V28) Discharge Disposition: Home or Self Care 06/12/2025 Telephone Pulmonology - [place] 175 [facility] [address] [place] [phone] Abel Gregory MD 06/12/2025 Telephone Lung Screening Program - [place] 299 [facility] [address] [place] [phone] [place] 06/10/2025 1:00 PM EDT Office Visit Internal Medicine - [place] 175 [facility] [address] [place] [phone] Loki iSms MD Primary hypertension (Primary Dx); Hypercholesterolemia; Hyponatremia; Hair loss 2025 Telephone Pulmonology - [place] [address] [phone] Abel Gregory MD 05/23/2025 8:45 AM EDT Office Visit Pulmonology - [place] [address] [phone] Abel Gregory MD Chronic obstructive pulmonary disease with acute exacerbation ([facility] V24, [facility] V28) (Primary Dx); Chronic obstructive pulmonary disease, unspecified COPD type ([facility] V24, [facility] V28) from Last 3 Months Immunizations Name Administration Dates Next Due Pfizer SARS-CoV-2 COVID-19, mRNA, LNP-S, preservative free 02/26/2021 Surgical History Surgery Date Site/Laterality Comments BREAST LUMPECTOMY PROCEDURE:BREAST LUMPECTOMY APPENDECTOMY PROCEDURE:APPENDECTOMY APPENDECTOMY PROCEDURE: CT APPENDECTOMY; COMMENT: age 10 SALPINGOOPHORECTOMY PROCEDURE: CT LAPAROSCOPY W/RMVL ADNEXAL STRUCTURES; COMMENT: ovaina cysts BREAST BIOPSY 2014 Left PROCEDURE: BX BREAST; PERC NEEDLE CORE W/IMAG GUID BREAST SURGERY 2014 Left PROCEDURE: CT UNLISTED PROCEDURE BREAST Medical History Medical History Date Comments Breast cancer ([facility] V24, [facility] V28) DX:Breast cancer (HCC) Hypertension DX:Hypertension Hyperlipidemia [...] 08/21/2018 DX:Uni ntentional weight loss Breast cancer ([facility] V24, [facility] V28) 11/17/2014 DX:Breast cancer (HCC); COMM ENT: left Family History Medical History [...] Description 09/16/2025 11:00 AM EST Office Visit Pulmonology - [place] [address] [phone] Abel Gregory MD [address] [address] 09/23/2025 2:00 PM EST Appointment [facility] CT Scan [address] [place] [address] 09/30/2025 1:30 PM EST Clinical Support Lung Screening Program - [place] 299 [facility] [address] [place] [address] 10/23/2025 1:15 PM EST Office Visit Internal Medicine - [place] 175 [facility] [address] [place] [phone] Loki Sims MD [address] [address] 12/31/2025 11:45 AM EST Office Visit [facility] Hematology Oncology [address] [place] [address] Estella Samuels MD [address] [place] [address] Health Maintenance Due Date Last Done Comments [...] Signed Date: 06/18/2025 08:38 ET Workstation ID: [id number] Transcribed By: Self Edit Transcribed Date: 06/18/2025 08:18 ET Narrative 06/18/2025 8:38 AM EDT EXAMINATION: CT CHEST WITHOUT CONTRAST LUNG CANCER SCREENING, LOW DOSE CLINICAL INFORMATION: Lung cancer screening. Current smoker. COMPARISON: Portions of previous 08/29/23 TECHNIQUE: Multidetector CT. Examination of the chest. Examination of the chest without IV contrast. Reformatting in the coronal and sagittal planes. Device: CloudSponge VCT DLP: 106 mGy-cm CTDI: 3.22 Dose [...] and has some reticular margins. 06/13/25-0.8 cm (31) There is a new micronodule in the [...] from the original result were not included. [facility] Pulmonary Lab [address] [place] [id number] Pulmonary Functions Report Date of service: 06/12/25 Patient Name: Michelle Strong Date of : 1960 Age: 65 y.o. Gender: female Ordering Provider: Able Gregory MD Diagnosis listed on Order: Chronic obstructive pulmonary disease with acute exacerbation ([facility] V24, [facility] V28) Reason for Exam: Order Questions Answers [...] LAB CHEMISTRY METHOD 05/23/2025 3:46 PM EDT [facility] Triglycerides 98 0 - 150 mg/dL LAB CHEMISTRY METHOD 05/23/2025 3:46 PM EDT [facility] HDL 52 >=40 mg/dL LAB CHEMISTRY METHOD 05/23/2025 3:46 PM EDT [facility] LDL Calculated 104(H) 0 - 100 mg/dL LAB CHEMISTRY METHOD 05/23/2025 3:46 PM EDT [facility] VLDL Cholesterol [place] 19.6 mg/dL LAB CHEMISTRY METHOD 05/23/2025 3:46 PM EDT [facility] Non HDL Chol. (LDL+VLDL) 124 <145 mg/dL LAB CHEMISTRY METHOD 05/23/2025 3:46 PM EDT [facility] Chol/HDL Ratio 3.4 0.0 - 4.4 LAB CHEMISTRY METHOD 05/23/2025 3:46 PM EDT [facility] Blood Venous blood specimen / Unknown Venipuncture / Unknown 05/23/2025 9:42 AM EDT 05/23/2025 9:42 AM EDT us Loki Sims MD LAB BLOOD ORDERABLES Final Resul t [facility] [address] [place] [address], * (ABNORMAL) CBC auto differential (05/23/2025 9:42 AM EDT) WBC 9.2 4.8 - 10.8 K/mcL LAB HEMETOLOGY METHOD 05/23/2025 10:32 AM [facility] RBC 3.90 3.80 - 4.80 [facility] LAB HEMETOLOGY METHOD 05/23/2025 10:32 AM [facility] Hemoglobin 12.2 11.5 - 16.0 g/dL LAB HEMETOLOGY METHOD 05/23/2025 10:32 AM [facility] Hematocrit 36.2 35.0 - 47.0 % LAB HEMETOLOGY METHOD 05/23/2025 10:32 AM T [facility] MCV 92.8 79.0 - 98.0 FL LAB HEMETOLOGY METHOD 05/23/2025 10:32 AM [facility] MCH 31.3 27.0 - 32.0 pcg LAB HEMETOLOGY METHOD 05/23/2025 10:32 AM [facility] MCHC 33.7 32.0 - 37.0 g/dL LAB HEMETOLOGY METHOD 05/23/2025 10:32 AM T [facility] RDW 12.1 11.0 - 15.0 % LAB HEMETOLOGY METHOD 05/23/2025 10:32 AM [facility] Platelets 394 130 - 400 K/mcL LAB HEMETOLOGY METHOD 05/23/2025 10:32 AM [facility] MPV 8.7 7.0 - 11.0 FL LAB HEMETOLOGY METHOD 05/23/2025 10:32 AM [facility] NRBC 0.0 <1.0 % LAB HEMETOLOGY METHOD 05/23/2025 10:32 AM [facility] NRBC Absolute 0.00 <0.10 K/mcL LAB HEMETOLOGY METHOD 05/23/2025 10:32 AM [facility] Neutrophils Relative 63.3 % LAB HEMETOLOGY METHOD 05/23/2025 10:32 AM [facility] Lymphocytes Relative 10.0 % LAB HEMETOLOGY METHOD 05/23/2025 10:32 AM [facility] Monocytes Relative 16.0 % LAB HEMETOLOGY METHOD 05/23/2025 10:32 AM [facility] Eosinophils Relative 9.4 % LAB HEMETOLOGY METHOD 05/23/2025 10:32 AM [facility] Basophils Relative 0.9 % LAB HEMETOLOGY METHOD 05/23/2025 10:32 AM [facility] Immature Granulocytes Relative 0.4 % LAB HEMETOLOGY METHOD 05/23/2025 10:32 AM [facility] Neutrophils Absolute 5.82 1.50 - 7.00 K/mcL LAB HEMETOLOGY METHOD 05/23/2025 10:32 AM [facility] Lymphocytes Absolute 0.92(L) 1.00 - 5.00 K/mcL LAB HEMETOLOGY METHOD 05/23/2025 10:32 AM EDT [facility] Monocytes Absolute 1.47(H) 0.20 - 1.00 K/mcL LAB HEMETOLOGY METHOD 05/23/2025 10:32 AM EDT [facility] Eosinophils Absolute 0.86(H) 0.00 - 0.50 K/mcL LAB HEMETOLOGY METHOD 05/23/2025 10:32 AM EDT [facility] Basophils Absolute 0.08 0.00 - 0.20 [facility] HEMETOLOGY METHOD 05/23/2025 10:32 AM EDT [facility] Immature Granulocytes Absolute 0.04(H) 0.00 - 0.03 K/mcL LAB HEMETOLOGY METHOD 05/23/2025 10:32 AM EDT [facility] Blood Venous blood specimen / Unknown Venipuncture / Unknown 05/23/2025 9:42 AM EDT 05/23/2025 9:42 AM EDT us Loki Sims MD LAB BLOOD ORDERABLES Final Resul t Performing Organization Address City/[facility]/ZIP Co de Phone Number [facility] [address] [place] [address], [place] [phone] * Thyroid stimulating hormone (05/23/2025 9:42 AM EDT) TSH 1.15 0.40 - 4.00 mcIU/mL LAB CHEMISTRY METHOD 05/23/2025 5:45 PM EDT [facility] Blood Venous blood specimen / Unknown Venipuncture / Unknown 05/23/2025 9:42 AM EDT 05/23/2025 9:42 AM EDT us Loki Sims MD LAB BLOOD ORDERABLES Final Resul t [facility] [address] [place] [address], [place] [phone] * (ABNORMAL) Comprehensive metabolic panel (05/23/2025 9:42 AM EDT) Sodium 131(L) 133 - 145 mmol/L LAB CHEMISTRY METHOD 05/23/2025 3:46 PM [facility] Potassium 3.9 3.5 - 5.5 mmol/L LAB CHEMISTRY METHOD 05/23/2025 3:46 PM [facility] Chloride 99 96 - 110 mmol/L LAB CHEMISTRY METHOD 05/23/2025 3:46 PM [facility] CO2 23 21 - 32 mmol/L LAB CHEMISTRY METHOD 05/23/2025 3:46 PM [facility] Anion Gap 9 3 - 11 LAB CHEMISTRY METHOD 05/23/2025 3:46 PM [facility] Glucose 110(H) 70 - 100 mg/dL LAB CHEMISTRY METHOD 05/23/2025 3:46 PM [facility] BUN 16 5 - 25 mg/dL LAB CHEMISTRY METHOD 05/23/2025 3:46 PM [facility] Creatinine 1.19(H) 0.50 - 1.10 mg/dL LAB CHEMISTRY METHOD 05/23/2025 3:46 PM [facility] eGFR 51(L) >=60 mL/min/1. 73m2 LAB CHEMISTRY METHOD 05/23/2025 3:46 PM [facility] Comment:Calculation based on the Chronic Kidney Disease Epidemiology Collaboration (CKD-EPI) equation refit without adjustment for race. BUN/Creatinine Ratio 13.4 LAB CHEMISTRY METHOD 05/23/2025 3:46 PM [facility] Calcium 9.1 8.5 - 10.5 mg/dL LAB CHEMISTRY METHOD 05/23/2025 3:46 PM [facility] AST (SGOT) 13 10 - 42 unit/L LAB CHEMISTRY METHOD 05/23/2025 3:46 PM EDT [facility] ALT (SGPT) 14 10 - 60 unit/L LAB CHEMISTRY METHOD 05/23/2025 3:46 PM EDT [facility] Alkaline Phosphatase 104 42 - 121 unit/L LAB CHEMISTRY METHOD 05/23/2025 3:46 PM EDT [facility] Total Protein 6.6 6.0 - 8.0 g/dL LAB CHEMISTRY METHOD 05/23/2025 3:46 PM EDT [facility] Albumin 3.2 3.2 - 5.0 g/dL LAB CHEMISTRY METHOD 05/23/2025 3:46 PM EDT [facility] Total Bilirubin 0.5 0.0 - 1.4 mg/dL LAB CHEMISTRY METHOD 05/23/2025 3:46 PM EDT [facility] Blood Venous blood specimen / Unknown Venipuncture / Unknown 05/23/2025 9:42 AM EDT 05/23/2025 9:42 AM EDT us Loki Sims MD LAB BLOOD ORDERABLES Final Resul t [facility] [address] [place] [address], * HERNANDO DEXA AXIAL SKELETON (05/28/2024 7:45 AM EDT) Anatomical Region Laterality Modality Mammography 05/27/2024 1:12 PM EDT Narrative 05/28/2024 7:45 AM EDT [facility] Diagnostic Imaging Department [address] [place] [address] Patient: MICHELLE STRONG/Age/Sex: 1960 - 64 - F Unit#: [id number] Location/Status: SPDIMAM/REG CLI Mnemonic[facility] Ordering Physician: ESTELLA SAMUELS MD Hernando Dexa [...] probability of hip fracture of 7.6%. Code 69278 Dictating Physician: LUIS ANTONIO TRIPLETT MD Electronically Signed by: LUIS ANTONIO TRIPLETT MD Dic Date/Time: 05/28/2443 Sign date/Time: 05/28/2445 Procedure Note Luis Antonio Triplett MD - 08/21/2024 [facility] Diagnostic Imaging Department [address] [place] [address] Patient: BERNADETTERENATEMICHELLE KHOURY./Age/Sex: 1960 - 64 - F Unit#: [id number] Location/Status: SPDIMAM/REG CLI Mnemonic/[facility] Ordering Physician: ESTELLA SAMUELS MD Hernando Dexa [...] density of the femurs bilaterally is 0.821 gm/xi5ynnre is 81% of that of young normals [...] probability of hip fracture of 7.6%. 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 Care Teams Offbearer Relationship Specialty Start Date End Date Loki Sims MD [address] [place] [address] PCP - General 10/16/23
--- OUTSIDE RECORDS SUMMARY | 2025-08-01 14:53 | XMS_ITS | Clinical Summary ---
Author Organization [facility] Address [address] [place] [address] Care Team Providers Care Charge Entry Specialist Name Role Phone Loki Sims MD Primary [...] - PCV) 2023 COVID-19 Vaccine (2 - 2024-2 6 season) 2025 02/26/2021 Influenza Vaccine (#1) 2025 RSV Adult > 60+ Yrs or Pregn ant (1 - 1-dose 75+ series) 2033 Hepatitis B Vaccines Aged Out No long er eligible based on patient's age to complete this topic RSV Ped < 20 months Aged Out No longe r eligible based on patient's age to complete this topic Care Teams Charge Entry Specialist Relationship Specialty Start Date End Date Loki Sims MD PCP - General Internal Medicine 10/16/23
[2025-08-01 18:34] LABS: Osmolality, Serum 298 mosm/kg (281-305); Parathyroid Hormone Intact 105.5 pg/mL (8.7-77.1)
[2025-08-01 18:39] LABS: Protein/Creatinine Ratio, Ur 0.07 (<0.2); Total Protein Urine Random 9 mg/dL (<12)
[2025-08-01 18:39] LABS: Anion Gap 12 (12-20); Blood Urea Nitrogen 31 mg/dL (9-16); Calcium 9.3 mg/dL (8.4-10.2); Carbon Dioxide 24 mmol/L (22-29); Chloride 106 mmol/L (96-108); Estimated Glomerular Filt Rate 45; Potassium 4.4 mmol/L (3.3-5.1); Sodium 138 mmol/L (135-145); Uric Acid 8.4 mg/dL (2.4-5.7)
[2025-08-01 18:47] LABS: Thyroid Stimulating Hormone 1.71 uIU/mL (0.32-4.0)
== END 2025-08-01 13:33 | disposition home or self-care (01) ==
LOC: HO.HKASLDS 13:32
PROVIDERS: Visit Provider Internal Medicine Nephrology
DX: N18.31 Chronic kidney disease, stage 3a (principal); I95.9 Hypotension, unspecified; E87.1 Hypo-osmolality and hyponatremia
CPT/HCPCS: 36415; 80051; 82306; 82310; 82533; 82565; 82570; 82784; 83930; 83935; 83970; 84156; 84300; 84443; 84520; 84550; 86334

== ENCOUNTER 2025-08-07 14:38 | Outpatient (AMB) | payer MEDICARE, MEDICAID, SELFPAY ==
[2025-08-07 14:47] VITALS: BP 118/70; PULSE 71; O2SAT 93; BMI 26.6
--- NOTE | 2025-08-07 14:47 | HO.NEPHOV_ITS ---
Vital Signs 08/07/25 14:47 Height 5 ft 5 in Weight 160 lb BMI 26.6 BP 118/70 Blood Pressure Location Lt brachial Position Sitting Pulse 71 Pulse Source Pulse Oximeter Pulse Oximetry (%) 93 Oxygen Delivery Method Room Air Intake Visit Reasons: 1mnth w lab-Conf Solutions Architect Required: No Accompanied by: Self / Same As Patient Allergies bee venom protein (honey bee) Allergy (Verified 08/07/25 14:47) Unknown sulfamethoxazole (From Sulfamethoxazole-Trimethoprim) Allergy (Verified 08/07/25 14:47) Unknown trimethoprim (From Sulfamethoxazole-Trimethoprim) Allergy (Verified 08/07/25 14:47) Unknown HPI Comments Details: I had the pleasure of seeing Yamilex in follow up for hyponatremia, hypertension and mild chronic kidney disease. She has COPD and has history of respiratory failure. She follows with Dr. Gregory. She is not on any diuretics. She consumes excess free water by mouth. She has history of anxiety and is on Celexa. She also had breast cancer and had been on letrozole which she has discontinued. Her blood pressure medications have been adjusted lately. She denies any carotid stenosis, peripheral arterial disease, CVA, CHF or CAD. She consumes excess sodium in the diet. She has no family history of any renal disease, renal replacement or renal transplantation. She denies nausea, vomiting, diarrhea, chest pain, orthostatic symptoms, epistaxis, hemoptysis, hematuria, hearing deficits or proteinuria. She has no history of renal calculi or parapr oteinemia. [facility] Medical History (Updated 07/08/25 @ 15:17 by Antonio Sadler MD) Breast cancer Shortness of breath Inadequate dietary energy intake Hypotension, unspecified Hyponatremia Hypertensive chronic kidney disease with stage 1 through stage 4 chronic kidney disease, or unspecified chronic kidney disease Chronic obstructive pulmonary disease with (acute) exacerbation Chronic kidney disease, stage 3b Anxiety disorder, unspecified Acute hypoxic respiratory failure Surgical History Hx of abdominal surgery Hx of appendectomy H/O breast surgery Social History Alcohol intake: current Patient Tobacco Use Status: Former Tobacco user Review of Systems Const All systems reviewed & are unremarkable except as noted in HPI and below Physical Exam Vital Signs: Last Vital Signs Pulse 71 08/07/25 14:47 BP 118/70 08/07/25 14:47 Pulse Ox 93 08/07/25 14:47 Oxygen Delivery Method Room Air 08/07/25 14:47 BMI result Body Mass Index 26.6 Const General: comfortable and no acute distress Orientation/consciousness: patient oriented x3 HEENT Head: Yes normocephalic Mouth: Normal oral and palatal mucosa present Eyes EOM: EOMs intact bilaterally Neck Neck: Yes supple Resp Auscultation: clear to auscultation bilaterally Cardio Jugular venous distension: no JVD Rate: regular rate GI Palpation (GI): Soft to palpation Auscultation: normal bowel sounds General: Yes no CVA tenderness Back/Spine/Pelvis Back: no CVA tenderness Skin General skin exam: no rashes or lesions noted Neuro General: patient oriented x3 and moves all extremities Extrem General: Yes no pedal edema Results Reviewed Nephrology Results: Sodium, (135-145) 138 mmol/L 08/01/25 Potassium, (3.3-5.1) 4.4 mmol/L 08/01/25 Chloride, (96-108) 106 mmol/L 08/01/25 Carbon Dioxide, (22-29) 24 mmol/L 08/01/25 BUN, (9-16) 31 mg/dL H 08/01/25 Creatinine, (0.5-1.4) 1.20 mg/dL 08/01/25 Calcium, (8.4-10.2) 9.3 mg/dL 08/01/25 PTH Intact, (8.7-77.1) 105.5 pg/mL H 08/01/25 Urine Creatinine 129.68 mg/dL 08/01/25 Protein/Creatinin Ratio, (<0.2) 0.07 08/01/25 Assessment & Plan Assessment & Plan (1) Hyponatremia: Code(s): E87.1 - Hypo-osmolality and hyponatremia Category: Medical (2) CKD stage 3a, GFR 45-59 ml/min: Code(s): N18.31 - Chronic kidney disease, stage 3a Category: Medical (3) Hypertension: Code(s): I10 - Essential (primary) hypertension Category: Medical Qualifiers: Hypertension type: primary hypertension Qualified Code(s): I10 - Essential (primary) hypertension Plan Yamilex most likely has excess ADH due to pulmonary issues which has resolved . It is compounded by her intake of Celexa for anxiety disorder. She also takes excess free water by mouth. I asked her to goal on fluid restriction. She has longstanding hypertension and her blood pressure medications had been optimized recently. She also has CKD for some time. She is on ALLEN-inhibitor. I asked her to minimize sodium intake and avoid nonsteroidal anti-inflammatories. Her blood work, urine studies were reviewed . I did not make any other medication changes other than discontinuation of her nonsteroidal anti-inflammatories. All these have been explained in detail. Answered all questions and follow-up appointment given. Orders: Orders Electrolytes 6 Months E87.1 - Hypo-osmolality and hyponatremia, I10 - Essential (primary) hypertension, N18.31 - Chronic kidney disease, stage 3a Creatinine 6 Months E87.1 - Hypo-osmolality and hyponatremia, I10 - Essential (primary) hypertension, N18.31 - Chronic kidney disease, stage 3a Blood Urea Nitrogen 6 Months E87.1 - Hypo-osmolality and hyponatremia, I10 - Essential (primary) hypertension, N18.31 - Chronic kidney disease, stage 3a Coding Level of Care Code Est Pt Level 4 (49646) Diagnoses Hyponatremia E87.1 CKD stage 3a, GFR 45-59 ml/min N18.31 Primary hypertension I10 Hypertension type: primary hypertension
--- OUTSIDE RECORDS SUMMARY | 2025-08-07 16:13 | XMS_ITS | Clinical Summary ---
Author Organization [facility] Address [address] [place] [address] Care Team Providers Care Certified Master Safe Technician Name Role Phone Loki Sims MD Primary [...] age to complete this topic Care Teams Certified Master Safe Technician Relationship Specialty Start Date End Date Loki Sims MD PCP - General Internal Medicine 10/16/23
--- OUTSIDE RECORDS SUMMARY | 2025-08-07 16:13 | XMS_ITS | Clinical Summary ---
Author Organization [address] [facility] Address [address] [place] [address] Phone Care Team Providers Care Pricing Associate Name Role Phone Loki Sims MD Primary Care Provider [phone] Allergies Active Allergy Reactions Criticality Noted Date [...] time each day. 90 tablet 5 Active B complex (Vitamins B Complex) tablet Take 1 tablet by mouth 1 (one) time each day. 30 tablet 1 5 025 Discontin ued([facility]) Hospital, Clinic, or Other Facility Administered Medication Ordered Dose Route Frequency Start Date End Date Status fjmgamlpwat-igoyigegyvzm-wzvv nterol (TRELEGY ELLIPTA) 100-62.5-25 mcg inhaler 100 mcgIndications:Chronic obstructive pulmonary disease with acute exacerbation ([facility] V24, [facility] V28) 100 mcg inhl Once 10/08/2024 Active Active Problems Problem Noted Date Diagnosed Date Chronic obstructive pulmonar y disease with acute exacerbation ([facility] V24, [facility] V28) 10/18/2024 Assessment & Plan (12/10/2024 2:50 PM EST): Stable on current inhaler trilogy Orders: CBC and differential; Future Comprehensive metabolic panel; Future Lipid panel with reflex to direct LDL; Future Thyroid stimulating hormone; Future Acute respiratory failure wi th hypoxia ([facility] V24, [facility] V28) 10/18/2024 Hypertensive chronic kidney disease with stage 1 through stage 4 chronic kidney disease, or unspecified chronic kidney disease 10/18/2024 Chronic kidney disease, stage 3b ([facility] V24, [facility] [place] V28) 10/18/2024 Hypotension, unspecified 10/18/2024 Anxiety disorder, unspecified 10/18/2024 Shortness of breath 09/19/2024 COPD exacerbation ([facility] V24, [facility] V28) Hyponatremia 09/19/2024 Inadequate dietary energy intake 09/19/2024 Acute hypoxic respiratory fa ilure ([facility] V24, [facility] V28) 09/16/2024 Encounters Date Type Department Care Team Description 06/18/2025 Telephone Lung Screening Program - [place] [address] [facility] [address] [place] [address] Jovita Ramos MA 06/13/2025 1:13 PM EDT - 06/13/2025 11:59 PM EDT Hospital Encounter [facility] CT Scan [address] [place] [address] Personal history of nicotine dependence Discharge Disposition: Home or Self Care 06/12/2025 1:30 PM EDT - 06/12/2025 11:59 PM EDT Hospital Encounter [facility] Pulmonary [address] [place] [phone] Chronic obstructive pulmonary disease with acute exacerbation ([facility] V24, [facility] V28) Discharge Disposition: Home or Self Care 06/12/2025 Telephone Pulmonology - [place] 175 [facility] [address] [place] [phone] Abel Gregory MD 06/12/2025 Telephone Lung Screening Program - [place] [address] [facility] [address] [place] [phone] Mitzy Álvarez MA 06/10/2025 1:00 PM EDT Office Visit Internal Medicine - [place] 175 [facility] [address] [place] [phone] Loki Sims MD Primary hypertension (Primary Dx); Hypercholesterolemia; Hyponatremia; Hair loss 2025 Telephone Pulmonology - [place] 175 [facility] [address] [place] [phone] Abel Gregory MD 05/23/2025 8:45 AM EDT Office Visit Pulmonology - [place] [address] [facility] [address] [place] [phone] Abel Gregory MD Chronic obstructive pulmonary disease with acute exacerbation ([facility] V24, [facility] V28) (Primary Dx); Chronic obstructive pulmonary disease, unspecified COPD type ([facility] V24, [facility] V28) from Last 3 Months Immunizations Immunization Administration Dates Next Due Pfizer SARS-CoV-2 COVID-19, mRNA, LNP-S, preservative free 02/26/2021 Surgical History Surgery Date Site/Laterality Comments BREAST LUMPECTOMY PROCEDURE:BREAST LUMPECTOMY APPENDECTOMY PROCEDURE:APPENDECTOMY APPENDECTOMY PROCEDURE: [place] APPENDECTOMY; COMMENT: age 10 SALPINGOOPHORECTOMY PROCEDURE: [place] LAPAROSCOPY W/RMVL ADNEXAL STRUCTURES; COMMENT: ovaina cysts BREAST BIOPSY 2014 Left PROCEDURE: BX BREAST; PERC NEEDLE CORE W/IMAG GUID BREAST SURGERY 2014 Left PROCEDURE: [place] UNLISTED PROCEDURE BREAST Medical History Medical History Date Comments Breast cancer ([facility] V24, [facility] V28) DX:Breast cancer ([facility]) Hypertension DX:Hypertension Hyperlipidemia DX:Hyperlipidemi a Anxiety DX:Anxiety [...] 08/21/2018 DX:Uni ntentional weight loss Breast cancer ([facility] V24, [facility] V28) 11/17/2014 DX:Breast cancer ([facility]); COMM ENT: left Family History Medical History [...] Safety Answer Date Record ed Physical Abuse Unrecognized value 09/17/2024 Verbal Abuse Unrecognized value 09/17/2024 Comments Unknown Sex and Gender Information [...] 11:00 AM EST Office Visit Pulmonology - [place] [address] [phone] Abel Gregory MD [address] [address] 09/23/2025 2:00 PM EST Appointment [facility] CT Scan [address] [place] [phone] 09/30/2025 1:30 PM EST Clinical Support Lung Screening Program - [place] 299 [facility] [address] [place] [address] 10/23/2025 1:15 PM EST Office Visit Internal Medicine - [place] [address] [phone] Loki Sims MD [address] [address] 12/31/2025 11:45 AM EST Office Visit [facility] Hematology Oncology [address] [place] [phone] Estella Samuels MD [address] [place] [address] Health Maintenance Due Date Last Done Comments [...] Signed Date: 06/18/2025 08:38 ET Workstation ID: [id number] Transcribed By: Self Edit Transcribed Date: 06/18/2025 08:18 ET Narrative 06/18/2025 8:38 AM EDT EXAMINATION: CT CHEST WITHOUT CONTRAST LUNG CANCER SCREENING, LOW DOSE CLINICAL INFORMATION: Lung cancer screening. Current smoker. COMPARISON: Portions of previous 08/29/23 TECHNIQUE: Multidetector CT. Examination of the chest. Examination of the chest without IV contrast. Reformatting in the coronal and sagittal planes. Device: Myxer VCT DLP: 106 mGy-cm CTDI: 3.22 Dose [...] from the original result were not included. [facility] Pulmonary Lab [address] [place] [address] Pulmonary Functions Report Date of service: 06/12/25 Patient Name: Michelle Strong Date of : 1960 Age: 65 y.o. Gender: female Ordering Provider: Abel Gregory MD Diagnosis listed on Order: Chronic obstructive pulmonary disease with acute exacerbation ([facility] V24, [facility] V28) Reason for Exam: Order Questions Answers [...] mg/dL LAB CHEMISTRY METHOD 05/23/2025 3:46 PM [facility] Triglycerides 98 0 - 150 mg/dL LAB [facility]STR[facility] HDL 52 >=40 mg/dL LAB CHEMISTRY METHOD 05/23/2025 3:46 PM [facility] LDL Calculated 104(H) 0 - 100 mg/dL LAB CHEMISTRY METHOD 05/23/2025 3:46 PM [facility] VLDL Cholesterol [place] 19.6 mg/dL LAB CHEMISTRY METHOD 05/23/2025 3:46 PM [facility] Non HDL Chol. (LDL+VLDL) 124 <145 mg/dL LAB CHEMISTRY METHOD 05/23/2025 3:46 PM [facility] Chol/HDL Ratio 3.4 0.0 - 4.4 LAB CHEMISTRY METHOD 05/23/2025 3:46 PM EDT [facility] Blood Venous blood specimen / Unknown Venipuncture / Unknown 05/23/2025 9:42 AM EDT 05/23/2025 9:42 AM EDT us Loki Sims MD LAB BLOOD ORDERABLES Final Resul t [facility] [address] [place] [address], [place] [phone] * (ABNORMAL) CBC auto differential (05/23/2025 9:42 AM EDT) WBC 9.2 4.8 - 10.8 K/mcL LAB HEMETOLOGY METHOD 05/23/2025 10:32 AM EDT [facility] RBC 3.90 3.80 - 4.80 M/mcL LAB HEMETOLOGY METHOD 05/23/2025 10:32 AM EDT [facility] Hemoglobin 12.2 11.5 - 16.0 g/dL LAB HEMETOLOGY METHOD 05/23/2025 10:32 AM EDT [facility] Hematocrit 36.2 35.0 - 47.0 % LAB HEMETOLOGY METHOD 05/23/2025 10:32 AM EDT [facility] MCV 92.8 79.0 - 98.0 FL LAB HEMETOLOGY METHOD 05/23/2025 10:32 AM EDT [facility] MCH 31.3 27.0 - 32.0 pcg LAB HEMETOLOGY METHOD 05/23/2025 10:32 AM T [facility] MCHC 33.7 32.0 - 37.0 g/dL LAB HEMETOLOGY METHOD 05/23/2025 10:32 AM EDT [facility] RDW 12.1 11.0 - 15.0 % LAB HEMETOLOGY METHOD 05/23/2025 10:32 AM [facility] Platelets 394 130 - 400 K/mcL LAB HEMETOLOGY METHOD 05/23/2025 10:32 AM [facility] MPV 8.7 7.0 - 11.0 FL LAB HEMETOLOGY METHOD 05/23/2025 10:32 AM [facility] NRBC 0.0 <1.0 % LAB HEMETOLOGY METHOD 05/23/2025 10:32 AM [facility] NRBC Absolute 0.00 <0.10 K/mcL LAB HEMETOLOGY METHOD 05/23/2025 10:32 AM [facility] Neutrophils Relative 63.3 % LAB HEMETOLOGY METHOD 05/23/2025 10:32 AM [facility] Lymphocytes Relative 10.0 % LAB HEMETOLOGY METHOD 05/23/2025 10:32 AM [facility] Monocytes Relative 16.0 % LAB HEMETOLOGY METHOD 05/23/2025 10:32 AM [facility] Eosinophils Relative 9.4 % LAB HEMETOLOGY METHOD 05/23/2025 10:32 AM [facility] Basophils Relative 0.9 % LAB HEMETOLOGY METHOD 05/23/2025 10:32 AM [facility] Immature Granulocytes Relative 0.4 % LAB HEMETOLOGY METHOD 05/23/2025 10:32 AM [facility] Neutrophils Absolute 5.82 1.50 - 7.00 K/mcL LAB HEMETOLOGY METHOD 05/23/2025 10:32 AM [facility] Lymphocytes Absolute 0.92(L) 1.00 - 5.00 K/mcL LAB HEMETOLOGY METHOD 05/23/2025 10:32 AM [facility] Monocytes Absolute 1.47(H) 0.20 - 1.00 K/mcL LAB HEMETOLOGY METHOD 05/23/2025 10:32 AM EDT [facility] Eosinophils Absolute 0.86(H) 0.00 - 0.50 K/[facility] LAB HEMETOLOGY METHOD 05/23/2025 10:32 AM EDT [facility] Basophils Absolute 0.08 0.00 - 0.20 K/[facility] LAB HEMETOLOGY METHOD 05/23/2025 10:32 AM EDT [facility] Immature Granulocytes Absolute 0.04(H) 0.00 - 0.03 K/[facility] LAB HEMETOLOGY METHOD 05/23/2025 10:32 AM EDT [facility] Blood Venous blood specimen / Unknown Venipuncture / Unknown 05/23/2025 9:42 AM EDT 05/23/2025 9:42 AM EDT us Loki Sims MD LAB BLOOD ORDERABLES Final Resul t Performing Organization Address City/[facility]/ZIP Co de Phone Number [facility] [address] [place] [address], [place] [phone] * Thyroid stimulating hormone (05/23/2025 9:42 AM EDT) [facility] Signature TSH 1.15 0.40 - 4.00 mcIU/mL LAB CHEMISTRY METHOD 05/23/2025 5:45 PM EDT [facility] Blood Venous blood specimen / Unknown Venipuncture / Unknown 05/23/2025 9:42 AM EDT 05/23/2025 9:42 AM EDT us Loki Sims MD LAB BLOOD ORDERABLES Final Resul t Performing Organization Address City/[facility]/ZIP Co de Phone Number [facility] [address] [place] [address], [place] [phone] * (ABNORMAL) Comprehensive metabolic panel (05/23/2025 9:42 AM EDT) Sodium 131(L) 133 - 145 mmol/L LAB CHEMISTRY METHOD 05/23/2025 3:46 PM [facility] Potassium 3.9 3.5 - 5.5 mmol/L LAB CHEMISTRY METHOD 05/23/2025 3:46 PM [facility] Chloride 99 96 - 110 mmol/L LAB CHEMISTRY METHOD 05/23/2025 3:46 PM [facility] CO2 23 21 - 32 mmol/L LAB CHEMISTRY METHOD 05/23/2025 3:46 PM [facility] Anion Gap 9 3 - 11 LAB CHEMISTRY METHOD 05/23/2025 3:46 PM [facility] Glucose 110(H) 70 - 100 mg/dL LAB CHEMISTRY METHOD 05/23/2025 3:46 PM [facility] BUN 16 5 - 25 mg/dL LAB CHEMISTRY METHOD 05/23/2025 3:46 PM [facility] Creatinine 1.19(H) 0.50 - 1.10 mg/dL LAB CHEMISTRY METHOD 05/23/2025 3:46 PM [facility] eGFR 51(L) >=60 mL/min/1. 73m2 LAB CHEMISTRY METHOD 05/23/2025 3:46 PM [facility] Comment:Calculation based on the Chronic Kidney Disease Epidemiology Collaboration (CKD-EPI) equation refit without adjustment for race. BUN/Creatinine Ratio 13.4 LAB CHEMISTRY METHOD 05/23/2025 3:46 PM [facility] Calcium 9.1 8.5 - 10.5 mg/dL LAB CHEMISTRY METHOD 05/23/2025 3:46 PM [facility] AST (SGOT) 13 10 - 42 unit/L LAB CHEMISTRY METHOD 05/23/2025 3:46 PM [facility] ALT (SGPT) 14 10 - 60 unit/L LAB CHEMISTRY METHOD 05/23/2025 3:46 PM EDT [facility] Alkaline Phosphatase 104 42 - 121 unit/L LAB CHEMISTRY METHOD 05/23/2025 3:46 PM EDT [facility] Total Protein 6.6 6.0 - 8.0 g/dL LAB CHEMISTRY METHOD 05/23/2025 3:46 PM EDT [facility] Albumin 3.2 3.2 - 5.0 g/dL LAB CHEMISTRY METHOD 05/23/2025 3:46 PM EDT [facility] Total Bilirubin 0.5 0.0 - 1.4 mg/dL LAB CHEMISTRY METHOD 05/23/2025 3:46 PM EDT [facility] Blood Venous blood specimen / Unknown Venipuncture / Unknown 05/23/2025 9:42 AM EDT 05/23/2025 9:42 AM EDT us Loki Sims MD LAB BLOOD ORDERABLES Final Resul t [facility] [address] [place] [address], * HERNANDO DEXA AXIAL SKELETON (05/28/2024 7:45 AM EDT) Anatomical Region Laterality Modality Mammography 05/27/2024 1:12 PM EDT Narrative 05/28/2024 7:45 AM EDT [facility] Diagnostic Imaging Department [address] [place] [address] Patient: MICHELLE STRONG /Age/Sex: 1960 - 64 - F Unit#: [id number] Location/Status: SPDIMAM/REG CLI Mnemonic[facility]ician: ESTELLA SAMUELS MD Hernando Dexa [...] probability of hip fracture of 7.6%. Code 14066 Dictating Physician: LUIS ANTONIO TRIPLETT MD Electronically Signed by: LUIS ANTONIO TRIPLETT MD Dic Date/Time: 05/28/2443 Sign date/Time: 05/28/24744 Procedure Note Luis Antonio Triplett MD - 08/21/2024 [facility] Diagnostic Imaging Department [address] [place] [address] Patient: MICHELLE STRONG /Age/Sex: 1960 - 64 - F Unit#: [id number] Location/Status: SPDIMAM/REG CLI Mnemonic/Ordering Site: [facility] Ordering [...] density of the femurs bilaterally is 0.821 gm/sm0ixhyi is 81% of that of young normals [...] probability of hip fracture of 7.6%. 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 Care Teams Pricing Associate Relationship Specialty Start Date End Date Loki Sims MD [address] [facility] [address] [place] [address] PCP - General 10/16/23
== END 2025-08-07 15:07 | disposition home or self-care (01) ==
LOC: HO.HKAS 14:39
PROVIDERS: PCP Internal Medicine; Visit Provider Internal Medicine Nephrology
DX: E87.1 Hypo-osmolality and hyponatremia (principal); N18.31 Chronic kidney disease, stage 3a; I10 Essential (primary) hypertension
CPT/HCPCS: 99214

== ENCOUNTER → 2025-08-07 14:38 | Outpatient (BNVA) | payer MEDICARE, MEDICAID, SELFPAY | PROVIDERS: PCP Internal Medicine; Visit Provider Internal Medicine Nephrology | DX: I12.9 Hypertensive chronic kidney disease with stage 1 through stage 4 chronic kidney disease, or unspecified chronic kidney disease (principal); N18.31 Chronic kidney disease, stage 3a; E87.1 Hypo-osmolality and hyponatremia | CPT/HCPCS: 99212 ==